=== PATIENT | male | born 1985 | race Caucasian/White ===

== ENCOUNTER 2016-03-15 08:47 | Emergency (ER) | payer OTHER ==
[~2016-03-15] VITALS: Ht 170.2 cm; Wt 74.8 kg
[2016-03-15 08:54] VITALS: BP 128/71
== END 2016-03-15 09:17 | disposition home or self-care (01) ==
LOC: ER 08:50
DX: S01.511A Laceration without foreign body of lip, initial encounter (principal); W01.198A Fall on same level from slipping, tripping and stumbling with subsequent striking against other object, initial encounter; Y93.89 Activity, other specified; Y92.9 Unspecified place or not applicable; Y99.9 Unspecified external cause status
CPT/HCPCS: 99281; A4606; A6402; A6403; Z7610; Z7502

== ENCOUNTER 2016-03-21 10:27 | Emergency (ER) | payer OTHER ==
[~2016-03-21] VITALS: Ht 170.2 cm; Wt 74.8 kg
[2016-03-21 10:34] VITALS: BP 163/99
== END 2016-03-21 12:26 | disposition home or self-care (01) ==
LOC: ER 10:29
DX: S01.511D Laceration without foreign body of lip, subsequent encounter (principal); Z88.1 Allergy status to other antibiotic agents; X58.XXXD Exposure to other specified factors, subsequent encounter; Y92.89 Other specified places as the place of occurrence of the external cause; Y93.89 Activity, other specified; Y99.8 Other external cause status
CPT/HCPCS: A4606; A6402; A6403; Z7502; Z7610

== ENCOUNTER 2016-08-12 21:45 | Emergency (ER) | payer OTHER ==
[~2016-08-12] VITALS: Ht 170.2 cm; Wt 77.1 kg
[2016-08-12 22:01] VITALS: BP 165/100
--- NOTE | 2016-08-12 22:12 | NUR ---
INFORMED BY ADMITTING "PT JUST LEFT"
== END 2016-08-12 22:13 | disposition left against medical advice (07) ==
LOC: ER 21:45
DX: Z53.21 Procedure and treatment not carried out due to patient leaving prior to being seen by health care provider (principal)
CPT/HCPCS: A4606; Z7610

== ENCOUNTER 2018-07-12 00:47 | Emergency (ER) | payer OTHER ==
[~2018-07-12] VITALS: Ht 170.2 cm; Wt 77.1 kg
--- NOTE | 2018-07-12 00:59 | NUR ---
URINE COLLECTED AND SENT TO LAB
--- NOTE | 2018-07-12 01:00 | NUR ---
BIBSELF WITH GIRLFRIEND. AAOX4. NAD, BREATHING EVEN AND UNLABORED. AMBULATORY W/O ASSIST. CAME WITH C/O THOUGHT OF SUICIDE, PT STATES THAT HE HAS BEEN FEELING HE WANTS TO END IT ALL. NO PLANS ON HOW TO COMMIT SUICIDE. DENIES HI. PT STATES THAT HE IS BIPOLAR AND HAVING RAISING THOUGHTS. PT IS PLACED ON ER BED 6. PT PATTED DOWN AND BELONGINGS FROM PT. AWAITING MD FOR EVAL.
[2018-07-12 01:06] LABS: APPEARANCE,URINE Clear (CLEAR); BILIRUBIN,URINE SMALL (NEGATIVE); BLOOD, URINE Negative Ery/uL (NEGATIVE); COLOR,URINE Yellow (YELLOW); KETONES,URINE Negative (NEGATIVE); LEUKOCYTE ESTERASE ,URINE Negative (NEGATIVE); NITRITE, URINE Negative (NEGATIVE); PROTEIN,URINE Trace mg/dl (NEGATIVE); UGLUCOSE Negative (NEGATIVE)
--- NOTE | 2018-07-12 01:08 | NUR ---
AT BEDSIDE FOR EVAL
[2018-07-12 01:09] LABS: BASOPHILS # (AUTO) 0.1 /CMM (0.0-0.2); BASOPHILS % (AUTO) 0.8 % (0.0-2.0); EOSINOPHILS % (AUTO) 3.5 % (0.0-6.0); HEMATOCRIT 41 % (39-51); LYMPHOCYTES # (AUTO) 1.8 /CMM (0.8-4.8); LYMPHOCYTES % (AUTO) 28.5 % (20.0-44.0); MEAN CORPUSCULAR HGB CONC 34 g/dl (31.0-36.0); MEAN CORPUSCULAR VOLUME 92 fL (80-96); MONOCYTES # (AUTO) 0.4 /CMM (0.1-1.30); MONOCYTES % (AUTO) 6.4 % (2.0-12.0); NEUTROPHILS # (AUTO) 3.9 /CMM (1.8-8.9); NEUTROPHILS % (AUTO) 60.8 % (43.0-81.0); PLATELET COUNT (AUTO) 255 /CMM (150-450); RED BLOOD CELL COUNT(AUTO) 4.44 MIL/uL (4.5-6.0); WHITE BLOOD COUNT (AUTO) 6.4 K/uL (4.3-11.0)
[2018-07-12 01:12] LABS: BACTERIA,URINE None seen /HPF (None Seen); RBC,URINE 0-2 /HPF (0-2); SQUAMOUS EPITHELIAL CELL,UR Few /HPF (None Seen); WBC,URINE 0-2 /HPF (0-3)
[2018-07-12 01:16] LABS: CALCIUM, SERUM 8.9 mg/dL (8.5-10.1); CARBON DIOXIDE 32 mmol/L (21-32); CHLORIDE 106 mmol/L (98-107); CREATININE 1.2 mg/dL (0.6-1.3); GLUCOSE 88 mg/dL (74-106); POTASSIUM 4.9 mmol/L (3.5-5.1); SODIUM SERUM 143 mmol/L (136-145); UREA NITROGEN, BLOOD 14 mg/dL (7-18)
[2018-07-12 01:21] LABS: ACETAMINOPHEN 0 ug/ml (10-30); ALANINE AMINOTRANSFERASE 61 U/L (12-78); ALBUMIN 3.7 g/dL (3.4-5.0); ALCOHOL, BLOOD < 3 mg/dL (0-0); ALKALINE PHOSPHATASE 45 U/L (46-116); ASPARTATE AMINOTRANSFERASE 30 U/L (15-37); BILIRUBIN,DIRECT 0.1 mg/dL (0.0-0.2); BILIRUBIN,TOTAL 0.5 mg/dL (0.2-1.0); SALICYLATE 0.2 mg/dL (2.8-20.0)
--- NOTE | 2018-07-12 01:38 | NUR ---
PT IN BED SLEEPING. GIRLFRIEND AT BEDSIDE
--- NOTE | 2018-07-12 02:02 | NUR ---
CALLED [facility] AND LEFT A MESSAGE.
--- NOTE | 2018-07-12 02:47 | NUR ---
PT STILL IN BED SLEEPING. AWAITING FOR PSYCH EVAL
--- NOTE | 2018-07-12 04:22 | NUR ---
STILL AWAITING FOR PSYCH EVAL. PT IN BED SLEEPING.
--- NOTE | 2018-07-12 05:20 | NUR ---
[facility] AT BEDSIDE FOR PSYCH EVALUATION
--- NOTE | 2018-07-12 05:34 | NUR ---
Patient discharged to home in stable condition. Written and verbal after care instructions given. Patient verbalizes understanding of instruction.Pt ambulatory with a steady gait. pt verbalized having no more thoughts of hurting himself.
[2018-07-12 05:35] VITALS: BP 128/78
== END 2018-07-12 05:37 | disposition home or self-care (01) ==
LOC: ER 00:53
DX: F31.9 Bipolar disorder, unspecified (principal); I10 Essential (primary) hypertension; F17.200 Nicotine dependence, unspecified, uncomplicated; Z98.890 Other specified postprocedural states; Z90.89 Acquired absence of other organs; Z88.8 Allergy status to other drugs, medicaments and biological substances
CPT/HCPCS: 36415; 80048; 80076; 80305; 80307; 80329; 81001; 85025; 99284; G0480; 81000-TC